=== PATIENT | female | born 1940 ===

== ENCOUNTER 2023-08-05 09:57 | Day surgery (SDC) | payer MEDICARE ==
[~2023-08-05] VITALS: Ht 170.2 cm; Wt 96.3 kg
[~2023-08-05 09:57] MED LIST: LR 1,000 ML IV SCH
[2023-08-05 11:12] VITALS: BP 158/80; PULSE 77; TEMP 97.5
[2023-08-05] MEDS ORDERED: COREG 6.256.25 MG/TA PO (11:15)
[2023-08-05] MEDS ORDERED: BENICAR 20MG TA20 MG PO (11:15)
[2023-08-05] MEDS ORDERED: HCTZ 25MG TAB25 MG PO (11:16)
[2023-08-05] MEDS ORDERED: XYZAL5 MG PO (11:17)
[2023-08-05] MEDS ORDERED: ZOCOR 20MG20 MG PO (11:18)
[2023-08-05] MEDS ORDERED: TIROSINT150 MC1 PO (11:18)
[2023-08-05] MEDS ORDERED: PRILOTC PO (11:19)
[2023-08-05] MEDS ORDERED: CALCIUM 600MG+D1 TAB PO (11:20)
[2023-08-05] MEDS ORDERED: FLONASEALLERGY NS (11:20)
[2023-08-05] MEDS ORDERED: EPA FISH OIL1 SGL PO (11:20)
[2023-08-05] MEDS ORDERED: BIOTIN10000 MCG PO (11:21)
[2023-08-05] MEDS ORDERED: TESSALON P100 MG/CAP PO (11:21)
[2023-08-05] MEDS ORDERED: ZANAFLEX 4MG TAB4 MG PO (11:22)
[2023-08-05] MEDS ORDERED: ALEVE 220MG220 MG PO (11:23)
[2023-08-05] MEDS ORDERED: BENTYL 10MG10 MG/CAP PO (11:24)
[2023-08-05] MEDS ORDERED: Succinylcholine PF 200 MG/10 ML SYRINGE IV ONE (12:50)
[2023-08-05] MEDS ORDERED: NS 10 ML IV ONE (12:50)
[2023-08-05] MEDS ORDERED: Ondansetron 4 MG/2 ML VIAL ONE (12:50)
[2023-08-05] MEDS ORDERED: fentaNYL 50 MCG/ML 2 ML VIAL ONE (13:07)
[2023-08-05] MEDS ORDERED: Acetaminophen 325 MG TAB PO PRN (13:30)
[2023-08-05] MEDS ORDERED: oxyCODONE 5 MG TAB PO PRN (13:30)
[2023-08-05] MEDS ORDERED: Naloxone 0.4 MG/ML VIAL IV PRN (13:30)
[2023-08-05] MEDS ORDERED: Hyoscyamine 0.125 MG Sublingual TAB SL PRN (13:30)
[2023-08-05] MEDS ORDERED: Ondansetron 4 MG/2 ML VIAL IV PRN ×2 (13:30→13:45)
[2023-08-05] MEDS ORDERED: fentaNYL 50 MCG/ML 2 ML VIAL IV PRN (13:45)
[2023-08-05] MEDS ORDERED: HYDROmorphone 2 MG/1 ML VIAL IV PRN (13:45)
[2023-08-05] MEDS ORDERED: BACITRACIN TOP ONE (14:00)
[2023-08-05] MEDS ORDERED: Acetaminophen 500 MG TAB PO SCH (14:25)
[2023-08-05 15:05] VITALS: BP 175/65; PULSE 62; TEMP 97.1
[2023-08-05 15:20] VITALS: BP 156/92; PULSE 64
[2023-08-05 15:35] VITALS: BP 174/67; PULSE 64
[2023-08-05 15:50] VITALS: BP 179/84; PULSE 64
[2023-08-05 16:05] VITALS: BP 159/74; PULSE 68; TEMP 97.1
--- NOTE | 2023-08-05 16:25 | NUR ---
1505 RETURNS TO ROOM 2 PER CART. AWAKE, ALERT. HOB ELEVATED 30 DEGREES. RESP UNLABORED. ABD SOFT. SMALL AMOUNT OF RED VAGINAL BLEEDING OBSERVED. NO DRAINAGE OBSERVED FROM PUBIC AREA INCISIONS. DENIES PAIN OR URINARY URGENCY. VITAL SIGNS OBTAINED. CALL LIGHT AT SIDE. IN ROOM 1520 HOB ELEVATED 50 DEGREES. CONVERSES WITH 1535 HOB ELEVATED 75 DEGREES. TOLERATES PO WATER AND JUICE WITHOUT NAUSEA. NO ADDIDITONAL VAGINAL BLEEDING OBSERVED 1555 DISCHARGE INSTRUCTIONS REVIEWED. PATIENT VERBALIZES UNDERSTANDING. COPY PROVIDED IN DISCHARGE FOLDER 1605 AMBULATES TO BATHROOM WITH CANE AND STANDBY ASSIST. VOIDS 300 ML LIGHT RED URINE. NO CLOTS OBSERVED. 1615 SEATED ON CHAIR IN ROOM. DRESSES SELF
== END 2023-08-05 16:25 | disposition home or self-care (01) ==
LOC: SDCO 09:57
DX: N36.42 Intrinsic sphincter deficiency (ISD) (principal); N39.46 Mixed incontinence; I10 Essential (primary) hypertension; K21.9 Gastro-esophageal reflux disease without esophagitis; Z79.899 Other long term (current) drug therapy
CPT/HCPCS: A4314; C1771; J0690; J2405; J2704; J3010; J7120